=== PATIENT | male | born 1980 | race Caucasian/White ===

== ENCOUNTER 2024-04-23 13:32 | Emergency (ER) | payer OTHER | END 2024-04-23 16:30 | disposition home or self-care (01) | LOC: MW.ED 13:32 | DX: G44.209 Tension-type headache, unspecified, not intractable (principal); Z75.8 Other problems related to medical facilities and other health care; Z87.891 Personal history of nicotine dependence; Z79.899 Other long term (current) drug therapy | CPT/HCPCS: 93005; 99282; 99284 ==